=== PATIENT | male | born 1970 | race Two or more races ===

== ENCOUNTER 2025-04-10 05:52 | Emergency (ER) | payer MEDICAID, OTHER ==
[~2025-04-10] VITALS: Ht 182.9 cm; Wt 76.6 kg
--- NOTE | 2025-04-10 06:14 | ED.PDOC ---
GI ASSESSMENT HPI Comments 54 y/o M, presents to the ED for CC of abdominal pain. Patient states, he has been experiencing epigastric abdominal pain with associated symptoms of nausea, vomiting, and blood in stool x1week. Patient describes, stool to be bright red in color. Patient denies fatigue, weakness, dizziness, fever, or diarrhea. No other symptoms or modifying factors present at this time. Chief Complaint: Abdominal Pain Time Seen by MD: 06:45 Reviewed Notes: Nurses Notes, Medications, Allergies Allergies: Coded Allergies: NO KNOWN ALLERGIES (Unverified , 04/10/25) Information Source: Patient Mode of Arrival: Ambulatory Timing: Weeks Duration: Since onset Prehospital treatment: None Quality: None Vomitus: Watery Stool: Blood Streaked Severity: Moderate Recent: None Recent Hx of: None Pain Location: Epigastric Modifying Factors: Nothing Associated sign and symptoms: Nausea, Vomiting, Abdominal Pain, Blood in Stool Past Medical History PAST MEDICAL HISTORY: Denies Surgical History: Denies all surgeries Family History Family History: Unknown Social History Smoker: Cigarettes Alcohol: Rarely Drugs: Marijuana Lives In: Home Constitutional: denies: chills, diaphoresis, fatigue, fever, malaise, sweats, weakness, others EENTM: denies: blurred vision, double vision, ear bleeding, ear discharge, ear drainage, ear pain, ear ringing, eye pain, eye redness, hearing loss, mouth pa in, mouth swelling, nasal discharge, nose bleeding, nose congestion, nose pain, photophobia, tearing, throat pain, throat swelling, voice changes, others Respiratory: denies: cough, hemoptysis, orthopnea, SOB at rest, shortness of breath, SOB with excertion, stridor, wheezing, others Cardiovascular: denies: chest pain, dizzy spells, diaphoresis, Dyspnea on exertion, edema, irregular heart beat, left arm pain, lightheadedness, palpitations, PND, syncope, others Gastrointestinal: reports: abdominal pain, blood streaked bowels, nausea, vomiting; denies: abdomen distended, constipated, diarrhea, dysphagia, difficul ty swallowing, hematemesis, melena, poor appetite, poor fluid intake, rectal bleeding, rectal pain, others Genitourinary: denies: burning, dysuria, flank pain, frequency, hematuria, incontinence, penile discharge, penile sore, pain, testicle pain, testicle swelling, urgency, others Neurological: denies: dizziness, fainting, headache, left sided numbness, left sided weakness, numbness, paresthesia, pre-existing deficit, right sided numbness, right sided weakness, seizure, speech problems, tingling, tremors, weakness, others Musculoskeletal: denies: back pain, gout, joint pain, joint swelling, muscle pain, muscle stiffness, neck pain, others Integumetry: denies: bruises, change in color, change in hair/nails, dryness, laceration, lesions, lumps, rash, wounds, others Allergic/Immunocompromised: denies: Difficulty Healing, Frequent Infections, Hives, Itching, others Hematologic/Lymphatic: denies: anemia, blood clots, easy bleeding, easy bruising, swollen glands, others Endocrine: denies: excessive hunger, excessive sweating, excessive thirst, excessive urination, flushing, intolerance to cold, intolerance to heat, unexplained weight gain, unexplained weight loss, others Psychiatric: denies: anxiety, bipolar disorder, depression, hopeless, panic disorder, schizophrenia, sleepless, suicidal, others All Other Systems: Reviewed and Negative Physical Exam General Appearance: Moderate Distress HEENT: Normal ENT Inspection, Pharynx Normal, TMs Normal Neck: Full Range of Motion, Non-Tender, Normal, Normal Inspection Respiratory: Chest Non-Tender, Lungs Clear, No Accessory Muscle Use, No Respiratory Distress, Normal Breath Sounds Cardiovascular: No Edema, No JVD, No Murmur, No Gallop, Normal Peripheral Pulses, Regular Rate/Rhythm Breast Exam: Deferred Gastrointestinal: No Organomegaly, Non Tender, No Pulsatile Mass, Normal Bowel Sounds, Soft Genitalia: Deferred Pelvic: Deferred Rectal: Deferred Extremities: No calf tenderness, Normal capillary refill, Normal inspection, Normal range of motion, Non-tender, No pedal edema Musculoskeletal : Apperance: Normal Neurologic: Alert, 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 Was a procedure done?: No GI differential Dx Differential Diagnosis: Bowel Obstruction, Cholangitis, Cholecystitis, Esophagitis, Gastritis/PUD, Gastroenteritis, GI hemorrhage, Inflammatory BD, Ischemic Bowel, Pancreatitis, Electrolyte Imbalance, Food Poisoning, Bacterial, Viral X-Ray, Labs, Meds, VS Vital Signs Date Time Temp Pulse Resp B/P (MAP) Pulse Ox O2 Delivery O2 Flow Rate FiO2 04/10/25 09:04 98.0 67 16 162/81 (108) 98 98.0 04/10/25 08:37 98.0 63 16 125/75 (92) 98 98.0 04/10/25 06:23 63 04/10/25 06:00 98.5 80 18 134/86 (102) 96 98.5 Lab Test 04/10/25 07:09 Range/Units White Blood Count 7.5 4.4-10.8 10^3/uL Red Blood Count 4.83 4.5-5.90 10^6/uL Hemoglobin 14.8 13.5-17.5 g/dL Hematocrit 43.0 41.0-53.0 % Mean Corpuscular Volume 89.0 80.0-100.0 fL Mean Corpuscular Hemoglobin 30.7 28.0-32.0 pg Mean Corpuscular Hemoglobin Concent 34.5 32.0-36.0 g/dL Red Cell Distribution Width 13.9 11.8-14.3 % Platelet Count 291 140-450 10^3/uL Mean Platelet Volume 7.6 6.9-10.8 fL Neutrophils (%) (Auto) 55.6 37.0-80.0 % Lymphocytes (%) (Auto) 33.8 10.0-50.0 % Monocytes (%) (Auto) 7.5 0.0-12.0 % Eosinophils (%) (Auto) 2.5 0.0-7.0 % Basophils (%) (Auto) 0.6 0.0-2.0 % Neutrophils # (Auto) 4.2 1.6-8.6 10 ^3/uL Lymphocytes # (Auto) 2.5 0.4-5.4 10 ^3/uL Monocytes # (Auto) 0.6 0-1.3 10 ^3/uL Eosinophils # (Auto) 0.2 0-0.8 10 ^3/uL Basophils # (Auto) 0 0-0.2 10 ^3/uL Nucleated Red Blood Cells 0.0 % Sodium Level 142 136-145 mmol/L Potassium Level 3.6 3.5-5.1 mmol/L Chloride Level 104 98-107 mmol/L Carbon Dioxide Level 28 20-31 mmol/L Anion Gap 10 5-15 Blood Urea Nitrogen 14 9-23 mg/dL Creatinine 1.13 0.700-1.30 mg/dL Glomerular Filtration Rate Calc 78 >90 mL/min BUN/Creatinine Ratio 12.4 10.0-20.0 Serum Glucose 88 74-106 mg/dL Calcium Level 10.1 8.7-10.4 mg/dL Troponin I High Sensitivity 6 </=54 ng/L Patient alert. Complaining of gastric irritation. Vitals stable. Answering questions. He does drink alcohol. Counseled patient effects of drinking for 15 minutes. WBC within normal limits. Blood pressure within normal limits. Hemoglobin within normal limits. EKG reviewed does not show any acute changes. Cardiac marker within normal limits. Was given prescription of Protonix. Was told to follow up with his primary care physician. Was told to come back if there is any problem. Time of 1ST Reevaluation: 07:15 Reevaluation 1ST: Improved Patient Education/Counseling: Diagnosis, Treatment Family Education/Counseling: No Family Present SEPSIS Sepsis Screen Vital Signs Date Time Temp Pulse Resp B/P (MAP) Pulse Ox O2 Delivery O2 Flow Rate FiO2 04/10/25 09:04 98.0 67 16 162/81 (108) 98 98.0 04/10/25 08:37 98.0 63 16 125/75 (92) 98 98.0 04/10/25 06:23 63 04/10/25 06:00 98.5 80 18 134/86 (102) 96 98.5 Laboratory Tests Test 04/10/25 07:09 White Blood Count 7.5 10^3/uL (4.4-10.8) Departure 1 Departure Time of Disposition: 09:16 Impression: Primary Impression: Gastritis Qualified Codes: K29.00 - Acute gastritis without bleeding Disposition: 01 HOME / SELF CARE / HOMELESS Condition: Good e-Prescriptions Pantoprazole Sodium Sesquihydr (Protonix) 40 Mg Tab 40 MG PO DAILY for 10 Days, #10 TAB Prov: FLAQUITO BAILON MD 04/10/25 Discharged With: Self Critical Care Note Critical Care Time?: No Stability Stability form required: No Heart Score Heart Score: Heart Score Response (Comments) Value History N/A 0 EKG N/A 0 Age N/A 0 Risk Factors N/A 0 Troponin N/A 0 Total 0 I personally scribed for FLAQUITO BAILON MD ([email or web address]) on 04/10/25 at 06:14. Electronically submitted by Sade Ames ([employer]). I personally scribed for FLAQUITO BAILON MD ([email or web address]) on 04/10/25 at 07:18. Electronically submitted by Sade Ames ([email or web address]). I personally scribed for FLAQUITO BAILON MD ([email or web address]) on 04/10/25 at 07:21. Electronically submitted by Sade Ames ([employer]). FLAQUITO BAILON MD Apr 10, 2025 06:14
--- NOTE | 2025-04-10 06:30 | ECG ---
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
[2025-04-10 07:35] LABS: Basophils # (auto) 0 10 ^3/uL (0-0.2); Basophils % (auto) 0.6 % (0.0-2.0); Eosinophils # (auto) 0.2 10 ^3/uL (0-0.8); Eosinophils % (auto) 2.5 % (0.0-7.0); Hemoglobin 14.8 g/dL (13.5-17.5); Lymphocytes # (auto) 2.5 10 ^3/uL (0.4-5.4); Lymphocytes % (auto) 33.8 % (10.0-50.0); Mean Corpuscular Hemoglobin 30.7 pg (28.0-32.0); Mean Corpuscular Hgb Conc. 34.5 g/dL (32.0-36.0); Monocytes # (auto) 0.6 10 ^3/uL (0-1.3); Monocytes % (auto) 7.5 % (0.0-12.0); Neutrophils # (auto) 4.2 10 ^3/uL (1.6-8.6); Neutrophils % (auto) 55.6 % (37.0-80.0); Platelet Count (auto) 291 10^3/uL (140-450); Red Blood Cells 4.83 10^6/uL (4.5-5.90); Red Cell Distribution Width 13.9 % (11.8-14.3); White Blood Cell 7.5 10^3/uL (4.4-10.8)
[2025-04-10 07:50] LABS: Chloride 104 mmol/L (98-107); Potassium 3.6 mmol/L (3.5-5.1); Sodium 142 mmol/L (136-145)
[2025-04-10 07:51] LABS: Anion Gap 10 (5-15); Calcium 10.1 mg/dL (8.7-10.4); Carbon Dioxide 28 mmol/L (20-31)
[2025-04-10 07:56] LABS: BUN/Creatinine Ratio 12.4 (10.0-20.0); Blood Urea Nitrogen 14 mg/dL (9-23); Glucose 88 mg/dL (74-106)
[2025-04-10] MEDS ORDERED: PANT40TA2 PO (09:16)
[2025-04-10 09:39] VITALS: BP 127/89; PULSE 65; RESP 16; TEMP 97.7; O2SAT 97
== END 2025-04-10 09:43 | disposition home or self-care (01) ==
LOC: ER 05:52
DX: K29.70 Gastritis, unspecified, without bleeding (principal); F17.210 Nicotine dependence, cigarettes, uncomplicated
CPT/HCPCS: 36415; 80048; 84484; 85025; 93005

== ENCOUNTER 2025-04-20 20:02 | Inpatient (IN) | payer MEDICAID ==
[~2025-04-20] VITALS: Ht 182.9 cm; Wt 76.8 kg
[~2025-04-20 20:02] MED LIST: PANT40TA2 PO
--- NOTE | 2025-04-20 20:32 | ED.PDOC ---
History of Present Illness HPI Comments 54-year-old male presents with chief complaint of nonradiating, epigastric abdominal pain, nausea, vomiting, coffee-ground emesis, and melena for over the past 4 weeks. Patient endorses on progressively worsening, intermittent symptoms, with recent development of coffee-ground emesis and melena stool production over the past few days. Abdominal pain is described as burning in quality to "knots" twisting. No significant history reported aside from marijuana, tobacco cigarettes, and occasional alcohol use. Denies any recent travel, substance use, spoiled food intake, or further relevant events or lifestyle changes. Patient denies having any diarrhea, constipation, rectal pain, weakness, lightheadedness, fever, chills, further associated symptoms. Previous ED visit on April 10, 2025 was reported to have been benign, with only blood in urine test performed then. Time Seen by MD: 20:10 Primary Care Provider: NONE Reviewed Notes: Nurses Notes, Medications, Allergies Allergies: Coded Allergies: NO KNOWN ALLERGIES (Unverified , 04/10/25) Home Meds Active Scripts Pantoprazole Sodium Sesquihydr (Protonix) 40 Mg Tab, 40 MG PO DAILY for 10 Days, #10 TAB Prov:FLAQUITO BAILON MD 04/10/25 Information Source: Patient Mode of Arrival: Ambulatory Severity: Moderate Timing: Weeks Duration: Intermittent Prehospital treatment: None Review of Systems: REVIEW OF SYSTEMS: Weight loss, no fever, no chills, HEENT: No neck pain, no blurred vision Cardiac: No chest pain. No palpitations. Lungs: No shortness of breath, GI: Epigastric abdominal pain, nausea, vomiting, coffee-ground emesis, melena stools Musculoskeletal: No joint pain , no back pain Skin: No rash, no wound Neuro: No headache, no dizziness, no syncope Vital Signs Vital Signs Date Time Temp Pulse Resp B/P (MAP) Pulse Ox O2 Delivery O2 Flow Rate FiO2 04/20/25 22:55 97.4 69 17 117/77 (90) 98 97.4 Physical Exam General: Awake, alert and oriented. No acute distress. Skin: Skin in warm, dry and intact without rashes or lesions. HEENT: The head is normocephalic and atraumatic. Conjunctivae are clear without exudates or hemorrhage. Sclera is non-icteric. Neck: Normal range of motion. No JVD. Cardiac: Regular rate Gastrointestinal: Epigastric abdominal pain Respiratory: No signs of respiratory distress. No Stridor. Extremities: Upper and lower extremities are atraumatic in appearance without deformity. Neurological: The patient is awake, alert and oriented to person, place, and time with normal speech. Speech is clear. There is no facial asymmetry. Psychiatric: Appropriate mood and affect. Good judgement and insight. Past Medical History PAST MEDICAL HISTORY: Denies Surgical History: Denies all surgeries Family History Family History: Unknown Social History Smoker: Cigarettes Alcohol: Rarely Drugs: Marijuana Lives In: Home Was a procedure done? Was a procedure done?: No EKG EKG : Pulse Rate (adult): 61 [place]: Normal Cardiac Rhythm: NSR Block: None Hypertrophy: None ST: Normal Differential Dx Considerations may include: Differential diagnoses considered include: Abdominal aortic aneurysm, NM, esophageal rupture, intestinal obstruction, mesenteric ischemia, perforated viscus or solid organ rupture, CHF with hepatomegaly, pneumonia, abscess, appendicitis, biliary disease, diverticulitis, gastritis, gastroenteritis, hepatitis, hernia, inflammatory bowel disease, pancreatitis, peptic ulcer disease, urinary tract infection, ureteral colic, constipation, GERD, irritable syndrome, abdominal wall pain, nonspecific abdominal pain, herpes zoster, nephrolithiasis. X-Ray, Labs, Meds, VS Vital Signs Date Time Temp Pulse Resp B/P (MAP) Pulse Ox O2 Delivery O2 Flow Rate FiO2 04/20/25 22:55 97.4 69 17 117/77 (90) 98 97.4 04/20/25 22:42 61 04/20/25 20:35 61 04/20/25 20:20 97.6 67 16 129/81 (97) 95 97.6 Lab Test 04/20/25 20:41 04/20/25 20:02 Range/Units White Blood Count 6.3 4.4-10.8 10^3/uL Red Blood Count 4.76 4.5-5.90 10^6/uL Hemoglobin 14.7 13.5-17.5 g/dL Hematocrit 42.5 41.0-53.0 % Mean Corpuscular Volume 89.3 80.0-100.0 fL Mean Corpuscular Hemoglobin 30.8 28.0-32.0 pg Mean Corpuscular Hemoglobin Concent 34.5 32.0-36.0 g/dL Red Cell Distribution Width 14.3 11.8-14.3 % Platelet Count 267 140-450 10^3/uL Mean Platelet Volume 7.7 6.9-10.8 fL Neutrophils (%) (Auto) 60.4 37.0-80.0 % Lymphocytes (%) (Auto) 28.0 10.0-50.0 % Monocytes (%) (Auto) 8.3 0.0-12.0 % Eosinophils (%) (Auto) 2.7 0.0-7.0 % Basophils (%) (Auto) 0.6 0.0-2.0 % Neutrophils # (Auto) 3.8 1.6-8.6 10 ^3/uL Lymphocytes # (Auto) 1.8 0.4-5.4 10 ^3/uL Monocytes # (Auto) 0.5 0-1.3 10 ^3/uL Eosinophils # (Auto) 0.2 0-0.8 10 ^3/uL Basophils # (Auto) 0 0-0.2 10 ^3/uL Nucleated Red Blood Cells 0.1 % Prothrombin Time 10.4 9.3-11.8 sec Prothrombin Time INR 0.98 0.9-1.15 Sodium Level 143 136-145 mmol/L Potassium Level 4.1 3.5-5.1 mmol/L Chloride Level 107 98-107 mmol/L Carbon Dioxide Level 26 20-31 mmol/L Anion Gap 10 5-15 Blood Urea Nitrogen 12 9-23 mg/dL Creatinine 1.05 0.700-1.30 mg/dL Glomerular Filtration Rate Calc 85 >90 mL/min BUN/Creatinine Ratio 11.4 10.0-20.0 Serum Glucose 98 74-106 mg/dL Calcium Level 10.0 8.7-10.4 mg/dL Total Bilirubin 0.9 0.2-1.0 mg/dL Aspartate Amino Transferase (AST) 32 13-40 U/L Alanine Aminotransferase (ALT) 32 7-40 U/L Alkaline Phosphatase 135 H 46-116 U/L Troponin I High Sensitivity 3 L </=54 ng/L Total Protein 7.1 5.7-8.2 g/dL Albumin 4.7 3.2-4.8 g/dL Urine Color Yellow Yellow Urine Clarity Clear Clear Urine pH 5.5 5.0-9.0 Urine Specific [place] 1.027 1.001-1.035 Urine Protein Negative Negative Urine Ketones Negative Negative Urine Blood Negative Negative /uL Urine Nitrite Negative Negative Urine Bilirubin Negative Negative Urine Urobilinogen Normal Negative mg/dL Urine Leukocyte Esterase Negative Negative /uL Urine RBC 1 0 - 3 /hpf Urine Microscopic WBC 1 0-3 /HPF Urine Squamous Epithelial Cells Few <5 /hpf Urine Amorphous Crystals Few None Seen /hpf Urine Bacteria Few H None Seen /hpf Urine Mucus Few None Seen Urine Glucose Normal Normal mg/dL Current Medications Medications (Trade) Dose Ordered Sig/Philip Route Start Time Stop Time Status Last Admin Pantoprazole Sodium (Protonix) 40 mg ONCE ONCE IV 04/20/25 20:15 04/20/25 20:19 DC 04/21/25 02:57 Time of 1ST Reevaluation: 20:40 Reevaluation 1ST: Unchanged Patient Education/Counseling: Treatment, Other (Need for admission) Family Education/Counseling: No Family Present SEPSIS Sepsis Screen Physician Orders Orthostatic Vital Signs (04/20/25 ) Npo (Nothing By Mouth) Diet (04/21/25 Breakfast) Stool Occult Blood (04/20/25 20:15) Saline Lock (04/20/25 20:15) Ct Ab Pel With Iv Con Only (04/20/25 20:15) Vital Signs Date Time Temp Pulse Resp B/P (MAP) Pulse Ox O2 Delivery O2 Flow Rate FiO2 04/20/25 22:55 97.4 69 17 117/77 (90) 98 97.4 04/20/25 22:42 61 04/20/25 20:35 61 04/20/25 20:20 97.6 67 16 129/81 (97) 95 97.6 Laboratory Tests Test 04/20/25 20:41 White Blood Count 6.3 10^3/uL (4.4-10.8) Medications Medications Dose Ordered Sig/Philip Route Start Time Stop Time Status Last Admin Dose Admin Pantoprazole Sodium 40 mg ONCE ONCE IV 04/20/25 20:15 04/20/25 20:19 DC 04/21/25 02:57 Departure 1 Departure Time of Disposition: 00:48 Impression: Primary Impression: GI bleed Disposition: ADMITTED INPATIENT Condition: Stable Comments 54-YEAR-OLD MALE WITH WITH REPEAT VISITS FOR SUSPECTED GI BLEED. PATIENT ADMITTED TO HOSPITALIST SERVICE FOR FURTHER TREATMENT, EVALUATION AND MONITORING. Extensive evaluation was performed in attempt to identify or rule out: (See differential diagnosis section) The following tests were ordered, and results were reviewed by me and discussed with patient: (See diagnostic results section) The following test were independently interpreted by me: N/A I reviewed and agreed with the following test results read by other providers: CT abdomen with contrast I reviewed the following notes from the pt's past medical encounters: April 10, 2025 encounter for gastritis Additional information was gathered from interviewing the following independent historians: N/A Discussion of management or test interpretation with external physician/other qualified health health care facility administrator: N/A Addressed an acute or chronic illness that poses a threat to life or bodily function: GI BLEED Decision regarding hospitalization or escalation of hospital level of care: Risk and benefits of admission for further treatment of patient's condition was considered. Due to patient's current clinical condition, high risk of decline and poor outcome if discharged and need for further inpatient management and monitoring, patient will be admitted to the hospital. Drug therapy requiring intensive monitoring for toxicity: N/A Parenteral controlled substances: N/A Decision regarding elective major surgery with identified patient or procedure risk factors: N/A Decision regarding emergency major surgery: N/A Decision not to resuscitate or to de-escalate care because of poor prognosis: N/A Diagnosis or treatment significantly limited by social determinants of health: N/A Critical Care Note Critical Care Time?: No Stability Stability form required: No Heart Score Heart Score: Heart Score Response (Comments) Value History N/A 0 EKG N/A 0 Age N/A 0 Risk Factors N/A 0 Troponin N/A 0 Total 0 I personally scribed for BLAYNE CORREIA MD ([email or web address]) on 04/20/25 at 20:32. Electronically submitted by Aroldo Pedraza ([email or web address]). I personally scribed for BLAYNE CORREIA MD ([email or web address]) on 04/20/25 at 22:42. Electronically submitted by Aroldo Pedarza ([email or web address]). BLAYNE CORREIA MD Apr 20, 2025 20:32
[2025-04-20] MEDS: IOHEXOL 300 MG/ML 100ML BOTTLE IJ ONE (20:33)
--- NOTE | 2025-04-20 20:36 | ECG ---
[facility] Test Date: 2025-04-20 Test Time: 20:35:06 Pat Name: YOHANNES TAYLOR Department: ED Room: [facility] Gender: M Mental Hygienist: CARLOS : 1970 Requested By: BLAYNE CORREIA Order Number: [id number] Reading MD: Nhan Mercer Measurements Intervals [place] Rate: 61 P: 40 [place]: 106 QRS: 65 QRSD: 88 T: 60 QT: 429 QTc: 432 Interpretive Statements Sinus rhythm Short [place] interval Electronically Signed On 04-24-2025 18:55:37 PDT by Nhan Mercer Please click the below link to view image of tracing.
[2025-04-20 21:08] LABS: Hematocrit 42.5 % (41.0-53.0); Hemoglobin 14.7 g/dL (13.5-17.5); Mean Corpuscular Hemoglobin 30.8 pg (28.0-32.0); Mean Corpuscular Volume 89.3 fL (80.0-100.0); Nucleated Red Blood Cells % 0.1 %
[2025-04-20 21:17] LABS: Alanine Aminotransferase 32 U/L (7-40); Albumin 4.7 g/dL (3.2-4.8); Anion Gap 10 (5-15); BUN/Creatinine Ratio 11.4 (10.0-20.0); Blood Urea Nitrogen 12 mg/dL (9-23); Calcium 10.0 mg/dL (8.7-10.4); Carbon Dioxide 26 mmol/L (20-31); Glucose 98 mg/dL (74-106); Potassium 4.1 mmol/L (3.5-5.1); Sodium 143 mmol/L (136-145); Total Protein 7.1 g/dL (5.7-8.2)
[2025-04-20 21:18] LABS: Bilirubin, Total 0.9 mg/dL (0.2-1.0)
[2025-04-20 21:24] LABS: INR 0.98 (0.9-1.15); Prothrombin Time 10.4 sec (9.3-11.8)
[2025-04-20 21:33] LABS: Alkaline Phosphatase 135 U/L (46-116); Chloride 107 mmol/L (98-107)
[2025-04-20 21:34] LABS: Urine Amorphous Crystal FEW /hpf (None Seen); Urine Protein, UAD Negative (Negative)
--- NOTE | 2025-04-21 00:32 | DVH ---
Exam: CT CT AB PEL WITH IV CON ONLY History: Gastric abdominal pain, coffee ground emesis, black stool COMPARISON: None Technique: Multidetector spiral CT of the abdomen and pelvis was performed from lung bases to pubic s ymphysis. Intravenous contrast was administered during this examination. Portal venous imaging was obtained. Axial, coronal and sagittal multiplanar reformats were performed by the technologist on a separate workstation. Radiation Dose : 1. Abdomen/Pelvis: CTDIvol 9.67mGy, DLP 497.61 mGy*cm. CONTRAST: Type of contrast: Contrast injected: ml Contrast ingested: ml Findings: Lung Bases: No abnormality demonstrated. Liver: Liver is normal in size. No focal lesions noted. Normal hepatic vascular enhancement. Gallbladder and Biliary Tree: No abnormality demonstrated. Spleen: No abnormality demonstrated. Pancreas: No abnormality demonstrated. Adrenal Glands: No abnormality demonstrated. Kidneys: No abnormality demonstrated. Bladder: Unremarkable Bowel: Stomach appears grossly unremarkable. No abnormally dilated or thick-walled loops of large or small bowel noted. Appendix appears unremarkable. Ascites: Absent Lymphadenopathy: No evidence of lymphadenopathy. Abdominal Wall and Mesentery: Unremarkable. Vasculature: Unremarkable. Pelvic Organs: Unremarkable Musculoskeletal: No aggressive bony lesions or acute fracture. IMPRESSION: No acute abdominal or pelvic finding. Radiation optimization: All CT scans at this facility use at least one of these dose optimization jennifer hniques: automated exposure control mA and/or kV adjustment per patient size (includes targeted exam s where dose is matched to clinical indication) or iterative reconstruction.
--- NOTE | 2025-04-21 01:11 | DVHHP2 ---
History of Present Illness Reason for Visit: GI bleed History of Present Illness 54-year-old male presents for evaluation of GI bleed. Patient reports a two day history of having coffee-ground emesis and noticing blood streaked stools. Denies dizziness or shortness for breath. Patient denies any medical history. Denies taking any blood thinners. Patient does state that he has lost approximately 25 lb of unintentional weight loss over a four month period. No other acute complaints Past Medical History Denies Past Surgical History Denies Smoke: <1 pack per day ALCOHOL: occassional Drugs: Marijuana Review of Systems Review of Systems Review of systems are currently negative otherwise addressed in HPI. Allergies: Coded Allergies: NO KNOWN ALLERGIES (Unverified , 04/10/25) Medications Current Medications Medications Dose Ordered Sig/Philip Route Start Time Stop Time Status Last Admin Dose Admin Pantoprazole Sodium 40 mg DAILY IV 04/21/25 10:00 UNV Ondansetron HCl 4 mg Q4HP PRN IV 04/21/25 01:15 UNV Exam Vital Signs Vital Signs Date Time Temp Pulse Resp B/P (MAP) Pulse Ox O2 Delivery O2 Flow Rate FiO2 04/20/25 22:55 97.4 69 17 117/77 (90) 98 97.4 Exam Gen: 54-year-old male in no apparent distress. Skin: Warm, dry, normal color and texture, no rash. HEENT: Normocephalic atraumatic, mucous membranes moist and pink. Neck: Cervical and supraclavicular nodes normal without enlargement, trachea is midline, thyroid gland is normal without masses. Pulmonary: Clear to auscultation and percussion bilaterally. Cardiac: Regular rate and rhythm. No murmur Abdomen: Soft, nontender, nondistended, bowel sounds present all 4 quadrants, no guarding, no rigidity, no organomegaly. Extremities: No cyanosis, clubbing, no edema Neuro: Cranial nerves II through XII grossly intact, normal affect and speech, no focal motor deficits. Labs/Xrays ORDERING PHYSICIAN: BLAYNE CORREIA MD PROCEDURE(s): ABPLIV - CT AB PEL WITH IV CON ONLY REASON: Gastric abdominal pain, coffee ground emesis, black stool ORDER NUMBER(s): [id number], ACCESSION NUMBER(s): [id number] Exam: CT CT AB PEL WITH IV CON ONLY History: Gastric abdominal pain, coffee ground emesis, black stool COMPARISON: None Technique: Multidetector spiral CT of the abdomen and pelvis was performed from lung bases to pubic symphysis. Intravenous contrast was administered during this examination. Portal venous imaging was obtained. Axial, coronal and sagittal multiplanar reformats were performed by the technologist on a separate workstation. Radiation Dose : 1. Abdomen/Pelvis: CTDIvol 9.67mGy, DLP 497.61 mGy*cm. CONTRAST: Type of contrast: Contrast injected: ml Contrast ingested: ml Findings: Lung Bases: No abnormality demonstrated. Liver: Liver is normal in size. No focal lesions noted. Normal hepatic vascular enhancement. Gallbladder and Biliary Tree: No abnormality demonstrated. Spleen: No abnormality demonstrated. Pancreas: No abnormality demonstrated. Adrenal Glands: No abnormality demonstrated. Kidneys: No abnormality demonstrated. Bladder: Unremarkable Bowel: Stomach appears grossly unremarkable. No abnormally dilated or thick- walled loops of large or small bowel noted. Appendix appears unremarkable. Ascites: Absent Lymphadenopathy: No evidence of lymphadenopathy. Abdominal Wall and Mesentery: Unremarkable. Vasculature: Unremarkable. Pelvic Organs: Unremarkable Musculoskeletal: No aggressive bony lesions or acute fracture. IMPRESSION: No acute abdominal or pelvic finding. Radiation optimization: All CT scans at this facility use at least one of these dose optimization techniques: automated exposure control mA and/or kV adjustment per patient size (includes targeted exams where dose is matched to clinical indication) or iterative reconstruction. Labs Test 04/20/25 20:41 04/20/25 20:02 Range/Units White Blood Count 6.3 4.4-10.8 10^3/uL Red Blood Count 4.76 4.5-5.90 10^6/uL Hemoglobin 14.7 13.5-17.5 g/dL Hematocrit 42.5 41.0-53.0 % Mean Corpuscular Volume 89.3 80.0-100.0 fL Mean Corpuscular Hemoglobin 30.8 28.0-32.0 pg Mean Corpuscular Hemoglobin Concent 34.5 32.0-36.0 g/dL Red Cell Distribution Width 14.3 11.8-14.3 % Platelet Count 267 140-450 10^3/uL Mean Platelet Volume 7.7 6.9-10.8 fL Neutrophils (%) (Auto) 60.4 37.0-80.0 % Lymphocytes (%) (Auto) 28.0 10.0-50.0 % Monocytes (%) (Auto) 8.3 0.0-12.0 % Eosinophils (%) (Auto) 2.7 0.0-7.0 % Basophils (%) (Auto) 0.6 0.0-2.0 % Neutrophils # (Auto) 3.8 1.6-8.6 10 ^3/uL Lymphocytes # (Auto) 1.8 0.4-5.4 10 ^3/uL Monocytes # (Auto) 0.5 0-1.3 10 ^3/uL Eosinophils # (Auto) 0.2 0-0.8 10 ^3/uL Basophils # (Auto) 0 0-0.2 10 ^3/uL Nucleated Red Blood Cells 0.1 % Prothrombin Time 10.4 9.3-11.8 sec Prothrombin Time INR 0.98 0.9-1.15 Sodium Level 143 136-145 mmol/L Potassium Level 4.1 3.5-5.1 mmol/L Chloride Level 107 98-107 mmol/L Carbon Dioxide Level 26 20-31 mmol/L Anion Gap 10 5-15 Blood Urea Nitrogen 12 9-23 mg/dL Creatinine 1.05 0.700-1.30 mg/dL Glomerular Filtration Rate Calc 85 >90 mL/min BUN/Creatinine Ratio 11.4 10.0-20.0 Serum Glucose 98 74-106 mg/dL Calcium Level 10.0 8.7-10.4 mg/dL Total Bilirubin 0.9 0.2-1.0 mg/dL Aspartate Amino Transferase (AST) 32 13-40 U/L Alanine Aminotransferase (ALT) 32 7-40 U/L Alkaline Phosphatase 135 H 46-116 U/L Troponin I High Sensitivity 3 L </=54 ng/L Total Protein 7.1 5.7-8.2 g/dL Albumin 4.7 3.2-4.8 g/dL Urine Color Yellow Yellow Urine Clarity Clear Clear Urine pH 5.5 5.0-9.0 Urine Specific [place] 1.027 1.001-1.035 Urine Protein Negative Negative Urine Ketones Negative Negative Urine Blood Negative Negative /uL Urine Nitrite Negative Negative Urine Bilirubin Negative Negative Urine Urobilinogen Normal Negative mg/dL Urine Leukocyte Esterase Negative Negative /uL Urine RBC 1 0 - 3 /hpf Urine Microscopic WBC 1 0-3 /HPF Urine Squamous Epithelial Cells Few <5 /hpf Urine Amorphous Crystals Few None Seen /hpf Urine Bacteria Few H None Seen /hpf Urine Mucus Few None Seen Urine Glucose Normal Normal mg/dL Assessment/Plan Assessment/Plan Assessment GI bleed Unintentional weight loss Plan Admit the patient to [facility] to the hospitalist GI consult NPO Maintenance IV fluids Continue treatment per orders. Plan discussed with: Patient My Orders Orders - PRABHA NARVAEZ Procedure Category Date Status Time Pantoprazole PHA 04/21/25 Logged (Protonix) 10:00 Gastric Occult Blood LAB 04/21/25 Logged 01:03 Sodium Chloride 0.9% PHA 04/21/25 Logged 01:15 Basic Metabolic Panel LAB 04/21/25 Logged 04:00 Admit ADMIT 04/21/25 Transmitted 01:03 Ondansetron Hcl PHA 04/21/25 Logged (Zofran) 01:15 Complete Blood Count LAB 04/21/25 Logged 04:00 Condition: Stable OYJANA 04/21/25 In Process 01:03 Bedrest With Bathroom YOJANA 04/21/25 In Process Privileg 01:03 Date of Service: Apr 21, 2025 Billing Provider: PRABHA NARVAEZ Common Visit Codes: [id number] INP/OBS CARE (HIGH) PRABHA NARVAEZ Apr 21, 2025 01:11
[2025-04-21] MEDS ORDERED: ONDANSETRON HCL 4 MG/2 ML VIAL IV PRN ×2 (01:15→13:45)
[2025-04-21] MEDS: PANTOPRAZOLE 40 MG/10 ML VIAL INJ IV ONE (02:57)
[2025-04-21] MEDS: SODIUM CHLORIDE 0.9% 1,000 ML IV ONE (03:47)
[2025-04-21 04:22] LABS: Hematocrit 39.9 % (41.0-53.0); Hemoglobin 13.9 g/dL (13.5-17.5); Mean Corpuscular Hemoglobin 31.2 pg (28.0-32.0); Mean Corpuscular Volume 89.6 fL (80.0-100.0); Nucleated Red Blood Cells % 0.1 %
[2025-04-21 05:01] LABS: Anion Gap 7 (5-15); Calcium 9.2 mg/dL (8.7-10.4); Carbon Dioxide 30 mmol/L (20-31); Chloride 104 mmol/L (98-107); Potassium 4.0 mmol/L (3.5-5.1); Sodium 141 mmol/L (136-145)
[2025-04-21 05:06] LABS: Glucose 91 mg/dL (74-106)
[2025-04-21 05:07] LABS: BUN/Creatinine Ratio 12.9 (10.0-20.0); Blood Urea Nitrogen 13 mg/dL (9-23)
[2025-04-21 09:27] VITALS: BP 117/69; PULSE 57; RESP 16; TEMP 97.8; O2SAT 97
[2025-04-21] MEDS: PANTOPRAZOLE 40 MG/10 ML VIAL INJ IV SCH ×2 (09:46→22:13)
[2025-04-21 13:30] VITALS: BP 118/69; PULSE 55; RESP 16; TEMP 97.4; O2SAT 99
--- NOTE | 2025-04-21 13:42 | DVHPN2 ---
Subjective Patient continues to report having pain Reviewed: Care Plan, H&P, Labs, Medications Changes from previous H/P or p: No Changes General: Per HPI Objective Vitals Vital Signs Date Time Temp Pulse Resp B/P (MAP) Pulse Ox O2 Delivery O2 Flow Rate FiO2 04/21/25 09:27 57 16 97 Room Air* 0 21 04/21/25 09:27 97.8 117/69 (85) 97.8 General Appearance: Alert, Oriented X3, Cooperative, mild distress HEENT: Atraumatic, PERRLA Lungs: Other (Diminished breath sounds bilaterally) Cardiovascular: Normal S1, Normal S2 Abdomen: Normal bowel sounds, Soft, No tenderness, No hepatospenomegaly Musculoskeletal: Normal sensory function, Normal motor function Skin: Dry, Intact Psych/Mental Status: Mental status NL, Mood NL Medications Current Medications Medications Dose Ordered Sig/Philip Route Start Time Stop Time Status Last Admin Dose Admin Ondansetron HCl 4 mg Q4HP PRN IV 04/21/25 01:15 Pantoprazole Sodium 40 mg BID IV 04/21/25 22:00 Sodium Chloride 1,000 ml @ 75 mls/hr [id number] IV 04/21/25 13:00 Laboratory Results Laboratory Tests 04/21/25 03:56 Chemistry Test 04/20/25 20:41 04/21/25 03:56 Albumin 4.7 g/dL (3.2-4.8) Calcium Level 10.0 mg/dL (8.7-10.4) 9.2 mg/dL (8.7-10.4) Total Protein 7.1 g/dL (5.7-8.2) Coagulation Test 04/20/25 20:41 Prothrombin Time 10.4 sec (9.3-11.8) Prothrombin Time INR 0.98 (0.9-1.15) LFT Test 04/20/25 20:41 Alanine Aminotransferase (ALT) 32 U/L (7-40) Alkaline Phosphatase 135 U/L (46-116) H Aspartate Amino Transferase (AST) 32 U/L (13-40) Total Bilirubin 0.9 mg/dL (0.2-1.0) Urinalysis Test 04/20/25 20:02 Urine Color Yellow (Yellow) Urine Clarity Clear (Clear) Urine pH 5.5 (5.0-9.0) Urine Specific [place] 1.027 (1.001-1.035) Urine Protein Negative (Negative) Urine Ketones Negative (Negative) Urine Blood Negative /uL (Negative) Urine Nitrite Negative (Negative) Urine Bilirubin Negative (Negative) Urine Urobilinogen Normal mg/dL (Negative) Urine Leukocyte Esterase Negative /uL (Negative) Urine RBC 1 /hpf (0 - 3) Urine Microscopic WBC 1 /HPF (0-3) Urine Squamous Epithelial Cells Few /hpf (<5) Urine Amorphous Crystals Few /hpf (None Seen) Urine Bacteria Few /hpf (None Seen) H Urine Mucus Few (None Seen) Urine Glucose Normal mg/dL (Normal) Labs and/or images reviewed: Labs reviewed by me, Image(s) reviewed by me Assessment/Plan Assessment/Plan Impression: -GI bleed, probable peptic ulcer disease -nicotine dependence -alcoholism Plan: -Protonix 40 mg IV twice a day -Carafate t.i.d. -GI consultation -thiamine daily -continue IV hydration -start clear liquid diet -repeat labs in a.m. Total time spent with patient discussing and formulating plan of care: 35 minutes. This medical document was created using an electronic medical record system with [employer] dictation system. Although this document has been carefully reviewed, there may still be some phonetic and typographical errors. These areas are purely typographical due to imperfections of the software programs, and do not reflect any compromise in the patient's medical care. Plan discussed with: Patient, Other (RN) My Orders Orders - ESTHER MCCARTNEY NP Procedure Category Date Status Time * Gi Dvh Gas Truck Driver CONS 04/21/25 Transmitted 12:14 Pantoprazole PHA 04/21/25 In Process (Protonix) 22:00 Carcinoembryonic LAB 04/21/25 Logged Antigen 12:57 Clear Liq Diet DIET 04/21/25 Transmitted Lunch Sodium Chloride 0.9% PHA 04/21/25 In Process 13:00 Date of Service: Apr 21, 2025 Billing Provider: ESTHER MCCARTNEY NP Common Visit Codes: [id number] INP/OBS CARE(HIGH) ESTHER MCCARTNEY NP Apr 21, 2025 13:42
[2025-04-21] MEDS ORDERED: ACETAMINOPHEN 500 MG TAB or CAP PO PRN (13:45)
[2025-04-21] MEDS ORDERED: IPRATROPIUM BROM 0.5 MG/2.5ML INH SOL NEB PRN (13:45)
[2025-04-21] MEDS ORDERED: ALBUTEROL SULF 2.5 MG/0.5ML(0.5%) NEB SOLN NEB PRN (13:45)
[2025-04-21] MEDS: SUCRALFATE 1 GM/10 ML ORAL SUSP PO ONE (14:10)
[2025-04-21] MEDS: SODIUM CHLORIDE 0.9% 1,000 ML IV SCH (14:10)
[2025-04-21] MEDS: THIAMINE 100mg/ml INJ (200mg/2ml VIAL) IV SCH (14:10)
[2025-04-21 14:30] VITALS: O2SAT 98
[2025-04-21 14:32] VITALS: PULSE 58; RESP 18; O2SAT 98
[2025-04-21 17:20] VITALS: BP 113/69; PULSE 62; RESP 16; TEMP 97.6; O2SAT 98
[2025-04-21] MEDS: HYDROcodone-ACET 5/325MG TAB PO PRN (20:49)
--- NOTE | 2025-04-21 21:47 | DVHINCON2 ---
Date of service: Apr 21, 2025 Referring Physician Ernesto Cartagena Reason for Consultation UGI bleed History of Present Illness 54-year-old male presents for evaluation of GI bleed. Patient reports a two day history of having coffee-ground emesis and noticing blood streaked stools. [place] es dizziness or shortness for breath. Patient denies any medical history. Denies taking any blood thinners. Patient does state that he has lost approximately 25 lb of unintentional weight loss over a four month period. No other acute complaints. Patient seen in ER overflow resting comfortably. No further episodes of nausea vomiting or GI bleeding. His H&H is stable. Patient states he has not had any recent endoscopy. Past Medical History Past Medical History Alcohol abuse Gastritis Marijuana use Past Surgical History Negative Family History: FH: cancer G8 MOTHER Social History Smoke: <1 pack per day ALCOHOL: moderate Drugs: Marijuana Allergies: Coded Allergies: NO KNOWN ALLERGIES (Unverified , 04/10/25) Home Meds Active Scripts Pantoprazole Sodium Sesquihydr (Protonix) 40 Mg Tab, 40 MG PO DAILY for 10 Days, #10 TAB Prov:FLAQUITO BAILON MD 04/10/25 Current Medications Current Medications Medications (Trade) Dose Ordered Sig/Philip Route PRN Reason Start Time Stop Time Status Last Admin Pantoprazole Sodium (Protonix) 40 mg DAILY IV 04/21/25 10:00 04/21/25 12:58 DC 04/21/25 09:46 Ondansetron HCl (Zofran) 4 mg Q4HP PRN IV NAUSEA / VOMITING 04/21/25 01:15 04/21/25 13:44 DC Pantoprazole Sodium (Protonix) 40 mg BID IV 04/21/25 22:00 Sodium Chloride 1,000 ml @ 75 mls/hr [id number] IV 04/21/25 13:00 04/21/25 14:10 Sucralfate (Carafate Susp) 1 gm TID@0600,1130,2200 PO 04/21/25 22:00 Thiamine HCl 100 mg DAILY IV 04/21/25 13:44 04/21/25 14:10 Morphine Sulfate 1 mg Q4HPRN PRN IV SEVERE PAIN (7-10 PAIN SCALE) 04/21/25 13:45 Acetaminophen/ Hydrocodone Bitart ([place] 5/325MG Tab) 1 tab Q6HPRN PRN PO MODERATE PAIN (4-6 PAIN SCALE) 04/21/25 13:45 04/21/25 20:49 Acetaminophen (Tylenol Tablet Or Capsule) 500 mg Q8HP PRN PO PAIN SCALE 1-3 OR TEMP>100.4 04/21/25 13:45 Ondansetron HCl (Zofran) 4 mg Q6HP PRN IV NAUSEA / VOMITING 04/21/25 13:45 Albuterol (Ventolin Medneb) 2.5 mg Q4HPRN PRN NEB SHORTNESS OF BREATH 04/21/25 13:45 Ipratropium [place] (Atrovent Medneb) 0.5 mg Q4HPRN PRN NEB SHORTNESS OF BREATH 04/21/25 13:45 Vital Signs Vital Signs Date Time Temp Pulse Resp B/P (MAP) Pulse Ox O2 Delivery O2 Flow Rate FiO2 04/21/25 17:20 97.6 62 16 113/69 (84) 98 97.6 04/21/25 14:32 21 04/21/25 14:30 Room Air 0.0 Labs/Diagnostic Data Labs Test 04/21/25 13:38 04/21/25 03:56 04/20/25 20:41 04/20/25 20:02 Range/Units Carcinoembryonic Antigen 0.62 <=5.0 ng/mL White Blood Count 6.3 4.4-10.8 10^3/uL Red Blood Count 4.45 L 4.5-5.90 10^6/uL Hemoglobin 13.9 13.5-17.5 g/dL Hematocrit 39.9 L 41.0-53.0 % Mean Corpuscular Volume 89.6 80.0-100.0 fL Mean Corpuscular Hemoglobin 31.2 28.0-32.0 pg Mean Corpuscular Hemoglobin Concent 34.8 32.0-36.0 g/dL Red Cell Distribution Width 14.2 11.8-14.3 % Platelet Count 249 140-450 10^3/uL Mean Platelet Volume 7.8 6.9-10.8 fL Neutrophils (%) (Auto) 58.9 37.0-80.0 % Lymphocytes (%) (Auto) 32.0 10.0-50.0 % Monocytes (%) (Auto) 6.5 0.0-12.0 % Eosinophils (%) (Auto) 2.2 0.0-7.0 % Basophils (%) (Auto) 0.4 0.0-2.0 % Neutrophils # (Auto) 3.7 1.6-8.6 10 ^3/uL Lymphocytes # (Auto) 2.0 0.4-5.4 10 ^3/uL Monocytes # (Auto) 0.4 0-1.3 10 ^3/uL Eosinophils # (Auto) 0.1 0-0.8 10 ^3/uL Basophils # (Auto) 0 0-0.2 10 ^3/uL Nucleated Red Blood Cells 0.1 % Sodium Level 141 136-145 mmol/L Potassium Level 4.0 3.5-5.1 mmol/L Chloride Level 104 98-107 mmol/L Carbon Dioxide Level 30 20-31 mmol/L Anion Gap 7 5-15 Blood Urea Nitrogen 13 9-23 mg/dL Creatinine 1.01 0.700-1.30 mg/dL Glomerular Filtration Rate Calc 89 >90 mL/min BUN/Creatinine Ratio 12.9 10.0-20.0 Serum Glucose 91 74-106 mg/dL Calcium Level 9.2 8.7-10.4 mg/dL Prothrombin Time 10.4 9.3-11.8 sec Prothrombin Time INR 0.98 0.9-1.15 Total Bilirubin 0.9 0.2-1.0 mg/dL Aspartate Amino Transferase (AST) 32 13-40 U/L Alanine Aminotransferase (ALT) 32 7-40 U/L Alkaline Phosphatase 135 H 46-116 U/L Troponin I High Sensitivity 3 L </=54 ng/L Total Protein 7.1 5.7-8.2 g/dL Albumin 4.7 3.2-4.8 g/dL Urine Color Yellow Yellow Urine Clarity Clear Clear Urine pH 5.5 5.0-9.0 Urine Specific [place] 1.027 1.001-1.035 Urine Protein Negative Negative Urine Ketones Negative Negative Urine Blood Negative Negative /uL Urine Nitrite Negative Negative Urine Bilirubin Negative Negative Urine Urobilinogen Normal Negative mg/dL Urine Leukocyte Esterase Negative Negative /uL Urine RBC 1 0 - 3 /hpf Urine Microscopic WBC 1 0-3 /HPF Urine Squamous Epithelial Cells Few <5 /hpf Urine Amorphous Crystals Few None Seen /hpf Urine Bacteria Few H None Seen /hpf Urine Mucus Few None Seen Urine Glucose Normal Normal mg/dL Problems(with codes): (1) Nausea & vomiting (2) GI bleed (3) Gastritis Plan/Recommendation Plan IV Protonix 40 mg q.12 hours Clear liquid diet Monitor labs; check lipase levels NPO after midnight Endoscopy scheduled for 04/22/2025 Patient counseled about discontinuing alcohol and smoking and marijuana Plan discussed with: Patient, Other (ER Nurse) NATE SHARMA MD Apr 21, 2025 21:47
[2025-04-21] MEDS: SUCRALFATE 1 GM/10 ML ORAL SUSP PO SCH (22:13)
[2025-04-22] VITALS (9 sets, daily range): BP systolic 105–122; BP diastolic 60–87; PULSE 51–70; RESP 16–20; TEMP 36.6; O2SAT 95–100
[2025-04-22] MEDS: MORPHINE SULFATE INJ 2 MG/ml SYRG IV PRN (00:09)
[2025-04-22 05:47] LABS: Hematocrit 42.4 % (41.0-53.0); Hemoglobin 14.5 g/dL (13.5-17.5); Mean Corpuscular Hemoglobin 30.8 pg (28.0-32.0); Mean Corpuscular Volume 90.1 fL (80.0-100.0); Nucleated Red Blood Cells % 0.2 %
[2025-04-22 06:11] LABS: Alanine Aminotransferase 26 U/L (7-40); Albumin 4.4 g/dL (3.2-4.8); Anion Gap 7 (5-15); BUN/Creatinine Ratio 9.1 (10.0-20.0); Calcium 9.7 mg/dL (8.7-10.4); Carbon Dioxide 28 mmol/L (20-31); Chloride 104 mmol/L (98-107); Glucose 87 mg/dL (74-106); Potassium 4.2 mmol/L (3.5-5.1); Sodium 139 mmol/L (136-145); Total Protein 6.8 g/dL (5.7-8.2)
[2025-04-22 06:12] LABS: Alkaline Phosphatase 128 U/L (46-116); Bilirubin, Direct 0.4 mg/dL (<0.3); Blood Urea Nitrogen 9 mg/dL (9-23)
[2025-04-22 06:31] LABS: Lipase 26 U/L (12-53)
[2025-04-22 06:38] LABS: Bilirubin, Total 1.4 mg/dL (0.2-1.0)
--- NOTE | 2025-04-22 06:44 | DVH ---
CHEST RADIOGRAPH Indication: EGD Procedure Technique: Single frontal view of the chest was obtained COMPARISON: None FINDINGS: Lines and Tubes: None Lungs: Clear Pleura: No effusion. No pneumothorax. Cardiomediastinal contours: Unremarkable Bones: Unremarkable IMPRESSION: 1. No acute disease.
[2025-04-22] MEDS ORDERED: FLUMAZENIL 0.1 MG/ML INJ 10ML MDV IV ONE (10:53)
[2025-04-22] MEDS ORDERED: SODIUM CHLORIDE LOCK 0 ML ONE (10:53)
[2025-04-22] MEDS ORDERED: NALOXONE HCL 0.4 MG/ML VIAL ONE (10:53)
[2025-04-22] MEDS ORDERED: fentaNYL CITRATE 100 MCG/2 ML VL ONE (10:54)
[2025-04-22] MEDS ORDERED: LIDOCAINE VISCOUS 2% 15ML UD ONE (10:54)
[2025-04-22] MEDS ORDERED: diphenhdrAMINE HCL 50 MG/1 ML VL ONE (10:54)
[2025-04-22] MEDS ORDERED: MIDAZOLAM HCL 5 MG/ML-1ML VIAL ONE (10:54)
--- NOTE | 2025-04-22 11:44 | DVHPN2 ---
Subjective Patient continues to report having pain Reviewed: Care Plan, H&P, Labs, Medications Changes from previous H/P or p: No Changes General: Per HPI Objective Vitals Vital Signs Date Time Temp Pulse Resp B/P (MAP) Pulse Ox O2 Delivery O2 Flow Rate FiO2 04/22/25 09:28 57 16 96/65 04/22/25 08:33 97.9 97 97.9 04/22/25 08:00 Room Air* 0 21 Intake/Output Intake and Output 04/22/25 07:00 Intake Total 545 ml Balance 545 ml Intake Oral 545 ml # Voids 5 General Appearance: Alert, Oriented X3, Cooperative, mild distress HEENT: Atraumatic, PERRLA Lungs: Other (Diminished breath sounds bilaterally) Cardiovascular: Normal S1, Normal S2 Abdomen: Normal bowel sounds, Soft, No tenderness, No hepatospenomegaly Musculoskeletal: Normal sensory function, Normal motor function Skin: Dry, Intact Psych/Mental Status: Mental status NL, Mood NL Medications Current Medications Medications Dose Ordered Sig/Philip Route Start Time Stop Time Status Last Admin Dose Admin Pantoprazole Sodium 40 mg BID IV 04/21/25 22:00 04/22/25 08:47 40 MG Sodium Chloride 1,000 ml @ 75 mls/hr [id number] IV 04/21/25 13:00 04/22/25 02:20 75 MLS/HR Sucralfate 1 gm TID@0600,1130,2200 PO 04/21/25 22:00 04/22/25 05:22 1 GM Thiamine HCl 100 mg DAILY IV 04/21/25 13:44 04/22/25 08:48 100 MG Morphine Sulfate 1 mg Q4HPRN PRN IV 04/21/25 13:45 04/22/25 08:58 1 MG Acetaminophen/ Hydrocodone Bitart 1 tab Q6HPRN PRN PO 04/21/25 13:45 04/22/25 03:31 1 TAB Acetaminophen 500 mg Q8HP PRN PO 04/21/25 13:45 Ondansetron HCl 4 mg Q6HP PRN IV 04/21/25 13:45 Albuterol 2.5 mg Q4HPRN PRN NEB 04/21/25 13:45 Ipratropium [place] 0.5 mg Q4HPRN PRN NEB 04/21/25 13:45 Laboratory Results Laboratory Tests 04/22/25 04:38 Chemistry Test 04/22/25 04:38 Albumin 4.4 g/dL (3.2-4.8) Calcium Level 9.7 mg/dL (8.7-10.4) Total Protein 6.8 g/dL (5.7-8.2) Lipid panel Test 04/22/25 04:38 Lipase 26 U/L (12-53) LFT Test 04/22/25 04:38 Alanine Aminotransferase (ALT) 26 U/L (7-40) Alkaline Phosphatase 128 U/L (46-116) H Aspartate Amino Transferase (AST) 24 U/L (13-40) Direct Bilirubin 0.4 mg/dL (<0.3) H Total Bilirubin 1.4 mg/dL (0.2-1.0) H Urinalysis Test 04/20/25 20:02 Urine Color Yellow (Yellow) Urine Clarity Clear (Clear) Urine pH 5.5 (5.0-9.0) Urine Specific [place] 1.027 (1.001-1.035) Urine Protein Negative (Negative) Urine Ketones Negative (Negative) Urine Blood Negative /uL (Negative) Urine Nitrite Negative (Negative) Urine Bilirubin Negative (Negative) Urine Urobilinogen Normal mg/dL (Negative) Urine Leukocyte Esterase Negative /uL (Negative) Urine RBC 1 /hpf (0 - 3) Urine Microscopic WBC 1 /HPF (0-3) Urine Squamous Epithelial Cells Few /hpf (<5) Urine Amorphous Crystals Few /hpf (None Seen) Urine Bacteria Few /hpf (None Seen) H Urine Mucus Few (None Seen) Urine Glucose Normal mg/dL (Normal) Labs and/or images reviewed: Labs reviewed by me, Image(s) reviewed by me Assessment/Plan Assessment/Plan Impression: -GI bleed, probable peptic ulcer disease -nicotine dependence -alcoholism Plan: Meds: No events overnight -Protonix 40 mg IV twice a day -Carafate t.i.d. -GI consultation : Plans for EGD today. -thiamine daily -continue IV hydration -NPO, advance diet per Gastroenterology Total time spent with patient discussing and formulating plan of care: 35 minutes. Smoking cessation education provided with the patient. 10 minutes spent discussing this. This medical document was created using an electronic medical record system with Dragon computerized dictation system. Although this document has been carefully reviewed, there may still be some phonetic and typographical errors. These areas are purely typographical due to imperfections of the software programs, and do not reflect any compromise in the patient's medical care. Plan discussed with: Patient, Other (RN) My Orders Orders - ESTHER MCCARTNEY NP Procedure Category Date Status Time * Gi Dvh Adoption Coordinator CONS 04/21/25 Transmitted 12:14 Pantoprazole PHA 04/21/25 In Process (Protonix) 22:00 Sodium Chloride 0.9% PHA 04/21/25 In Process 13:00 Sucralfate Susp PHA 04/21/25 In Process (Carafate Susp) 22:00 Morphine Sulfate PHA 04/21/25 In Process Injection 13:45 Hydrocodone-Acet PHA 04/21/25 In Process 5/325mg Tab ([place] 13:45 Acetaminophen Tab Or PHA 04/21/25 In Process Cap (Tylenol Tablet 13:45 Ondansetron Hcl PHA 04/21/25 In Process (Zofran) 13:45 Albuterol Medneb PHA 04/21/25 In Process (Ventolin Medneb) 13:45 Ipratropium Medneb PHA 04/21/25 In Process (Atrovent Medneb) 13:45 Thiamine Inj PHA 04/21/25 In Process 13:44 Chest Portable XY 04/22/25 Resulted 01:28 Date of Service: Apr 22, 2025 Billing Provider: ESTHER MCCARTNEY NP Common Visit Codes: [id number] INP/OBS CARE(HIGH) Secondary Visit Codes: [id number] CHNG SMOKING >10MIN ESTHER MCCARTNEY NP Apr 22, 2025 11:44
[2025-04-22] MEDS ORDERED: SIMETHICONE 40 MG/0.6 ML ORAL DROP ONE (13:10)
[2025-04-22] MEDS ORDERED: LIDOCAINE 1% INJ PF 5ML AMP ONE (14:03)
[2025-04-22] MEDS ORDERED: PROPOFOL 10 MG/ML 20 ML IV ONE ×2 (14:03→14:14)
--- NOTE | 2025-04-22 14:54 | DVHOP2 ---
Operative Report DATE OF OPERATION: 04/22/25 PROCEDURE: Upper Endoscopy with biopsy. PREOPERATIVE INDICATION: The patient is a 54 -year-old male undergoing endoscopy for nausea vomiting and coffee-ground emesis POSTOPERATIVE DIAGNOSES: 1. 1 cm sliding-type hiatal hernia with slightly irregular squamocolumnar junction no significant esophagitis 2. There was a 2 mm benign-appearing gastric fundic polyp that was seen and removed by cold biopsy forceps 3. Mild gastroduodenitis otherwise normal examination of the 2nd and 3rd part of the duodenal with no active bleeding no fresh or old blood in the UGI tract PROCEDURE PERFORMED BY: Nate Gutierrez GI NURSE: Emily SCOPE: Olympus videoendoscope. ASA CLASS: 2. PREOPERATIVE MEDICATIONS: Mac sedation, Ta PROCEDURE IN DETAIL: After obtaining an informed consent, the patient was placed on left lateral decubitus position. The patient was then sedated with the above medications. A bite block was placed between his teeth. The endoscope was then passed through the oropharynx, into the esophagus, and through the stomach and pylorus up to the second and third part of the duodenum. The endoscope was then withdrawn. The 2nd and 3rd part of the duodenum were normal. The duodenal bulb showed mild duodenitis. Duodenal biopsies were obtained. The pre-pyloric area antrum and body showed mild gastritis. Gastric biopsies were obtained. On retroflexion the fundus and cardia were normal. A small 2 mm benign- appearing gastric polyp was seen and removed by cold biopsy forceps The endoscope was then withdrawn into the distal esophagus. Patient had a 5 mm extension of columnar epithelium into distal esophagus with no significant esophagitis The remaining distal and proximal biopsies and oropharynx were unremarkable .There was no fresh or old blood in the UGI tract The patient tolerated the procedure well without difficulty. COMPLICATIONS : None SPECIMENS: Duodenal biopsies Gastric biopsies Gastric polyp DISPOSITION: Transfer to floor Stable PLAN: 1. Await for biopsy result 2. Will place pt on Protonix 40 mg p.o. daily 3. Carafate 1 g p.o. q.h.s. 4. DC aspirin NSAIDs smoking alcohol 5. Resume soft mechanical diet advance as tolerated NATE GUTIERREZ MD Apr 22, 2025 14:54
[2025-04-22] MEDS ORDERED: SUCR1TAB31 OR (15:29)
[2025-04-22] MEDS ORDERED: PANT40TA2 PO (15:29)
--- NOTE | 2025-04-22 15:54 | DVHDS2 ---
Discharge Summary Date of Admission Apr 21, 2025 at 01:03 Date of Discharge: Apr 22, 2025 Admitting Diagnosis GI bleed Labs/Diagnostic Data: Laboratory Results Test 04/22/25 04:38 04/21/25 13:38 04/20/25 20:41 04/20/25 20:02 White Blood Count 6.2 10^3/uL (4.4-10.8) Red Blood Count 4.70 10^6/uL (4.5-5.90) Hemoglobin 14.5 g/dL (13.5-17.5) Hematocrit 42.4 % (41.0-53.0) Mean Corpuscular Volume 90.1 fL (80.0-100.0) Mean Corpuscular Hemoglobin 30.8 pg (28.0-32.0) Mean Corpuscular Hemoglobin Concent 34.2 g/dL (32.0-36.0) Red Cell Distribution Width 14.0 % (11.8-14.3) Platelet Count 238 10^3/uL (140-450) Mean Platelet Volume 8.0 fL (6.9-10.8) Neutrophils (%) (Auto) 58.2 % (37.0-80.0) Lymphocytes (%) (Auto) 33.3 % (10.0-50.0) Monocytes (%) (Auto) 6.1 % (0.0-12.0) Eosinophils (%) (Auto) 2.1 % (0.0-7.0) Basophils (%) (Auto) 0.3 % (0.0-2.0) Neutrophils # (Auto) 3.6 10 ^3/uL (1.6-8.6) Lymphocytes # (Auto) 2.1 10 ^3/uL (0.4-5.4) Monocytes # (Auto) 0.4 10 ^3/uL (0-1.3) Eosinophils # (Auto) 0.1 10 ^3/uL (0-0.8) Basophils # (Auto) 0 10 ^3/uL (0-0.2) Nucleated Red Blood Cells 0.2 % Sodium Level 139 mmol/L (136-145) Potassium Level 4.2 mmol/L (3.5-5.1) Chloride Level 104 mmol/L (98-107) Carbon Dioxide Level 28 mmol/L (20-31) Anion Gap 7 (5-15) Blood Urea Nitrogen 9 mg/dL (9-23) Creatinine 0.99 mg/dL (0.700-1.30) Glomerular Filtration Rate Calc 92 mL/min (>90) BUN/Creatinine Ratio 9.1 (10.0-20.0) Serum Glucose 87 mg/dL (74-106) Calcium Level 9.7 mg/dL (8.7-10.4) Total Bilirubin 1.4 mg/dL (0.2-1.0) Direct Bilirubin 0.4 mg/dL (<0.3) Aspartate Amino Transferase (AST) 24 U/L (13-40) Alanine Aminotransferase (ALT) 26 U/L (7-40) Alkaline Phosphatase 128 U/L (46-116) Total Protein 6.8 g/dL (5.7-8.2) Albumin 4.4 g/dL (3.2-4.8) Lipase 26 U/L (12-53) Carcinoembryonic Antigen 0.62 ng/mL (<=5.0) Prothrombin Time 10.4 sec (9.3-11.8) Prothrombin Time INR 0.98 (0.9-1.15) Troponin I High Sensitivity 3 ng/L (</=54) Urine Color Yellow (Yellow) Urine Clarity Clear (Clear) Urine pH 5.5 (5.0-9.0) Urine Specific Mcclelland 1.027 (1.001-1.035) Urine Protein Negative (Negative) Urine Ketones Negative (Negative) Urine Blood Negative /uL (Negative) Urine Nitrite Negative (Negative) Urine Bilirubin Negative (Negative) Urine Urobilinogen Normal mg/dL (Negative) Urine Leukocyte Esterase Negative /uL (Negative) Urine RBC 1 /hpf (0 - 3) Urine Microscopic WBC 1 /HPF (0-3) Urine Squamous Epithelial Cells Few /hpf (<5) Urine Amorphous Crystals Few /hpf (None Seen) Urine Bacteria Few /hpf (None Seen) Urine Mucus Few (None Seen) Urine Glucose Normal mg/dL (Normal) Other Laboratory Tests 04/22/25 04:38 Brief Hx & Hospital Course: History of Present Illness 54-year-old male presents for evaluation of GI bleed. Patient reports a two day history of having coffee-ground emesis and noticing blood streaked stools. Denies dizziness or shortness for breath. Patient denies any medical history. Denies taking any blood thinners. Patient does state that he has lost approximately 25 lb of unintentional weight loss over a four month period. No other acute complaints. Course of hospitalization: GI consultation was placed. Patient was initially treated with Protonix 40 mg IV twice a day as well as Carafate a.c. and HS. Patient had EGD, with findings of no active bleeding, with noted gastritis, sliding hiatal hernia. Patient has been cleared for discharge by Gastroenterology. Patient has had stable H&H while in the hospital. No further signs of hematemesis or melena stools. The patient will be discharged home and continued on Protonix 40 mg p.o. daily as well as Carafate 1 g tablet q.h.s.. Patient was also educated on the need to stop smoking and drinking alcohol. 10 minutes spent with Lifestyle modification education. Patient states that he will continue to smoke and drink at this time. Physical examination General: Alert and Oriented x3. No acute distress. Well-nourished. Eyes: EOMI. Anicteric. HENT: Moist mucous membranes. Lungs: Clear to auscultation bilaterally. No accessory muscle use. Cardiovascular: Regular rate and rhythm. No murmur. No JVD. Abdomen: Soft, non-tender and non-distended. No palpable masses. Extremities: No edema. Non-tender. Skin: No rashes or lesions. Warm. Neurologic: No focal neurological deficits. CN II-XII grossly intact, but not individually tested. Psychiatric: Cooperative. Appropriate mood and affect. Total time spent with patient discussing and formulating plan of care: 35 minutes. This medical document was created using an electronic medical record system with [employer] dictation system. Although this document has been carefully reviewed, there may still be some phonetic and typographical errors. These areas are purely typographical due to imperfections of the software programs, and do not reflect any compromise in the patient's medical care. Consults/Reason for consult Gastroenterology: GI bleed Operations or Procedures 04/22/2025: EGD Condition at Discharge: Guarded Final Diagnosis/Problems List GI Bleed Secondary diagnosis: -nicotine dependence -alcoholism Discharge Disposition: Home Discharge Instruct/Medications Diet: Regular Activity: No Restrictions, As Tolerated Follow Up/Referral: [place] [facility] [place] [address] Baljinder Gutierrez in 2-3 weeks Medications: Protonix 40mg po daily Carafate 1 tab qhs Scheduled Pantoprazole Sodium Sesquihydr (Protonix), 40 MG PO DAILY Pantoprazole Sodium Sesquihydr (Protonix), 40 MG PO DAILY Sucralfate (Carafate), 1 GM OR HS 36 Discharge Statement: "Patient was advised to return to the ER or call 911 if any headaches, dizziness, shortness of breath, chest pain, abdominal pain, bleeding, fevers, or worsening of medical condition. Patient was counseled about treatment plan, medications, possible side effects, patientverbalized understanding. All questions were answered to the best of my ability. This discharge took greater then 30 minutes in planning, reviewing documentation, counseling the patient, and discussing with other team members." ASSESSMENT ASSESSMENT Assessment GI Bleed Date of Service: Apr 22, 2025 Billing Provider: ESTHER MCCARTNEY NP Common Visit Codes: 59214-BAA/OBS DISCH DAY >30min ESTHER MCCARTNEY NP Apr 22, 2025 15:54
== END 2025-04-22 18:03 | disposition home or self-care (01) | DRG 241 ==
LOC: ER 20:02 → OVERFLOW 04-21 01:03 → WEST WING 04-21 01:06
PROVIDERS: ADMIT Nurse Practitioner Acute Care; ATTEND Nurse Practitioner Acute Care
PROC: 0DB98ZX Excision of Duodenum, Via Natural or Artificial Opening Endoscopic, Diagnostic (ICD-10-PCS; 2025-04-22)
PROC: 0DB68ZX Excision of Stomach, Via Natural or Artificial Opening Endoscopic, Diagnostic (ICD-10-PCS; 2025-04-22)
PROC: 0DB68ZZ Excision of Stomach, Via Natural or Artificial Opening Endoscopic (ICD-10-PCS; principal; 2025-04-22 14:05)
DX: K27.4 Chronic or unspecified peptic ulcer, site unspecified, with hemorrhage (principal); F10.20 Alcohol dependence, uncomplicated; K31.7 Polyp of stomach and duodenum; K29.71 Gastritis, unspecified, with bleeding; K29.81 Duodenitis with bleeding; K29.91 Gastroduodenitis, unspecified, with bleeding; F17.210 Nicotine dependence, cigarettes, uncomplicated; K44.9 Diaphragmatic hernia without obstruction or gangrene; Z80.8 Family history of malignant neoplasm of other organs or systems
CPT/HCPCS: 36415; 43239; 71045; 74177; 80048; 80053; 80076; 81001; 82378; 83690; 84484; 85025; 85610; 86850; 86900; 86901; 93005; G0378; J2250; J2405; J2470; J2704

== ENCOUNTER 2025-05-07 13:48 | Outpatient (CLI) | payer MEDICAID ==
[~2025-05-07 13:48] MED LIST changes: +SUCR1TAB31 OR
[2025-05-07 14:18] LABS: Hematocrit 41.8 % (41.0-53.0); Hemoglobin 14.3 g/dL (13.5-17.5); Mean Corpuscular Hemoglobin 31.3 pg (28.0-32.0); Mean Corpuscular Volume 91.6 fL (80.0-100.0); Nucleated Red Blood Cells % 0.0 %
== END 2025-05-07 17:00 | disposition home or self-care (01) ==
LOC: LAB 13:48
PROVIDERS: ATTEND Internal Medicine
DX: K50.911 Crohn's disease, unspecified, with rectal bleeding (principal)
CPT/HCPCS: 36415; 85025